=== PATIENT | female | born 1945 | race Hispanic/Latino ===

== ENCOUNTER 2017-04-07 13:44 | Outpatient (CLI) | payer MEDICARE ==
--- NOTE | 2017-04-07 14:52 | BD ---
BONE DENSITOMETRY USING DEXA: Date: 04/07/17 HISTORY: Postmenopausal screening for osteoporosis. FINDINGS: Lumbar Spine: BMD (g/cm2) L1 1.094 T-Score: 0.9 Z-Score: 3.0 L2 0.895 T-Score: -1.2 Z-Score: 1.1 L3 1.048 T-Score: -0.3 Z-Score: 2.1 L4 1.052 T-Score: -0.1 Z-Score: 2.4 L1-L4 1.026 T-Score: -0.2 Z-Score: 2.2 Femoral Neck: 0.727 T-Score: -1.1 Z-Score: 0.8 Total Femur: 0.960 T-Score: 0.1 Z-Score: 1.7 The 10 year fracture risk for a major osteoporotic fracture is 7.2% and for a hip fracture is 1.1%. IMPRESSION: Osteopenia. POS: [facility]
== END 2017-04-07 13:45 | disposition home or self-care (01) ==
LOC: MAMMO 13:44
PROVIDERS: ATTEND Family Medicine
DX: Z13.820 Encounter for screening for osteoporosis (principal); N95.9 Unspecified menopausal and perimenopausal disorder; M85.80 Other specified disorders of bone density and structure, unspecified site
CPT/HCPCS: 77080

== ENCOUNTER 2017-06-28 10:51 | Emergency (ER) | payer MEDICARE ==
[2017-06-28] MEDS ORDERED: Fentanyl 100 MCG/2 ML VIAL ONE (11:39)
--- NOTE | 2017-06-28 12:02 | RAD ---
RIGHT SHOULDER: Four views. HISTORY: Fall with injury to right shoulder. FINDINGS: No evidence of fracture or dislocation. IMPRESSION: No evidence of acute fracture. Exam is somewhat limited due to the portable projection. POS: [facility]
--- NOTE | 2017-06-28 12:07 | CT ---
CT BRAIN WITHOUT CONTRAST: TECHNIQUE: Multiple axial tomograms were obtained through the brain without IV enhancement. HISTORY: Fall with [id number] to head. FINDINGS: The ventricles have normal size and position. There are mild chronic ischemic changes seen. No evid ence of acute hemorrhage. No evidence of mass or edema. Sinuses and mastoids are clear. IMPRESSION: No evidence of acute abnormality. POS: [facility]
--- NOTE | 2017-06-28 12:09 | CT ---
CT OF THE CERVICAL SPINE WITHOUT CONTRAST: INDICATION: Fall landing on right shoulder with right shoulder pain. FINDINGS: No acute fracture or subluxation is seen involving the cervical spine. There is mild multilevel spon dylosis of the cervical spine. Osseous central canal is preserved. There is a comminuted fracture i nvolving the medial shaft of the right clavicle with extension into the right clavicular head. The l ateral fracture fragment is displaced anteriorly approximately shaft width. There is prominent s urrounding hematoma near the fracture site as well as involving the right pectoralis muscle. There a re scattered vascular calcifications. IMPRESSION: 1. No acute fracture or subluxation of the cervical spine. 2. Comminuted moderately displaced fracture involving the right medial clavicular shaft and right cl avicular head with surrounding hematoma. POS: [facility]
--- NOTE | 2017-06-28 12:58 | CT ---
CT CHEST: TECHNIQUE: Multiple axial tomograms obtained through the chest without IV contrast. HISTORY: Fall with injury to right shoulder and right chest. FINDINGS: The lungs are well aerated and are clear. There is no evidence of pneumothorax, effusion, or infiltr ate. Mediastinum is unremarkable. Review of the bony thorax reveals a comminuted fracture at the right sternoclavicular junction involv ing the proximal right clavicle. There is displacement of the major fragment. There is surrounding soft tissue edema at this location. No evidence of rib fracture. Sternum appears intact. IMPRESSION: A comminuted displaced fracture of the proximal right clavicle at this sternoclavicular junction. As sociated soft tissue swelling at this location. POS: [facility]
--- NOTE | 2017-06-28 13:35 | RAD ---
RIGHT FOOT: Three views. HISTORY: Fall with injury to the right foot. FINDINGS: There is an oblique fracture involving the mid to distal shaft of the 5th metatarsal without evidence of significant displacement. Enthesophyte from the plantar calcaneus. No other fracture identified . IMPRESSION: Fracture 5th metatarsal. POS: [facility]
== END 2017-06-28 13:14 | disposition home or self-care (01) ==
LOC: ERS 10:51
DX: S42.011A Anterior displaced fracture of sternal end of right clavicle, initial encounter for closed fracture (principal); S92.351A Displaced fracture of fifth metatarsal bone, right foot, initial encounter for closed fracture; E11.9 Type 2 diabetes mellitus without complications; E78.5 Hyperlipidemia, unspecified; I10 Essential (primary) hypertension; F41.9 Anxiety disorder, unspecified; W19.XXXA Unspecified fall, initial encounter; Y93.02 Activity, running
CPT/HCPCS: 70450; 71250; 72125; 96372; J3010

== ENCOUNTER 2017-11-28 15:36 | Outpatient (CLI) | payer MEDICARE | END 2017-11-28 15:37 | disposition home or self-care (01) | LOC: BICMRI 15:36 | PROVIDERS: ATTEND Family Medicine | DX: M47.26 Other spondylosis with radiculopathy, lumbar region (principal); M99.83 Other biomechanical lesions of lumbar region; N28.1 Cyst of kidney, acquired | CPT/HCPCS: 72148 ==

== ENCOUNTER 2017-11-28 16:18 | Outpatient (CLI) | payer MEDICARE | END 2017-11-28 16:19 | disposition home or self-care (01) | LOC: BICRAD 16:18 | PROVIDERS: ATTEND Nurse Practitioner Family | DX: M47.26 Other spondylosis with radiculopathy, lumbar region (principal); M51.16 Intervertebral disc disorders with radiculopathy, lumbar region; M51.17 Intervertebral disc disorders with radiculopathy, lumbosacral region | CPT/HCPCS: 72100 ==

== ENCOUNTER 2018-01-21 12:43 | Outpatient (CLI) | payer MEDICARE ==
--- NOTE | 2018-01-21 15:16 | ULT ---
BILATERAL RENAL ULTRASOUND: Date: 01/21/18 HISTORY: Renal cysts. FINDINGS: Real-time imaging of the right and left kidneys performed. The right kidney measures 10.5 cm and the left kidney measures 10.9 cm in size. There appears to be cortical thinning bilaterally. Small subcen timeter hypoechoic areas involving the upper poles of both kidneys are probably small cysts. It is di fficult to definitely characterize as they do not fully fulfill all ultrasound criteria. Given the mu ltiplicity, they are most likely small cysts. IMPRESSION: Tiny hypoechoic areas within the upper poles of both kidneys, most likely small, subcentimeter, cysts . POS: [facility]
== END 2018-01-21 12:44 | disposition home or self-care (01) ==
LOC: ULT 12:43
PROVIDERS: ATTEND Family Medicine
DX: N28.1 Cyst of kidney, acquired (principal)
CPT/HCPCS: 76770

== ENCOUNTER 2018-05-04 14:49 | Outpatient (CLI) | payer MEDICARE ==
--- NOTE | 2018-05-04 17:37 | ULT ---
THYROID SONOGRAM: Date: 05/04/18 HISTORY: Thyroid lump. FINDINGS: Right thyroid lobe is 5.0 cm length with multiple small solid and cystic nodules measuring up to 1.0 cm greatest diameter at the lateral margin of the mid polar level. Isthmus is 0.3 cm. Left thyroid lobe is 3.9 cm length with multiple small solid and cystic nodules. Dystrophic calcifica tion at the inferior pole is noted. IMPRESSION: Multiple small, nonspecific thyroid nodules. No dominant aggressive lesion is apparent. POS: [facility]
== END 2018-05-04 14:50 | disposition home or self-care (01) ==
LOC: BICULT 14:49
PROVIDERS: ATTEND Family Medicine
DX: R94.6 Abnormal results of thyroid function studies (principal); E04.2 Nontoxic multinodular goiter
CPT/HCPCS: 76536

== ENCOUNTER 2018-05-22 09:53 | Outpatient (CLI) | payer MEDICARE | END 2018-05-22 09:54 | disposition home or self-care (01) | LOC: BICMAMMO 09:53 | PROVIDERS: ATTEND Family Medicine | DX: Z12.31 Encounter for screening mammogram for malignant neoplasm of breast (principal); R92.1 Mammographic calcification found on diagnostic imaging of breast; Z98.890 Other specified postprocedural states | CPT/HCPCS: 77063; 77067 ==

== ENCOUNTER 2019-05-24 12:24 | Outpatient (CLI) | payer MEDICARE ==
--- NOTE | 2019-05-24 13:59 | MMO ---
Bilateral MAMMO Bilat Screen [facility]. CLINICAL HISTORY: Patient is 74 years old and is seen for screening. The patient has no family history of breast cancer. The patient has no personal history of cancer. The patient has a history of left Excisional Biopsy in August, - benign. VIEWS: The views performed were: bilateral craniocaudal with tomosynthesis and bilateral mediolateral oblique with tomosynthesis. FILMS COMPARED: The present examination has been compared to prior imaging studies performed at [facility] on 05/18/2015, 05/20/2016, 05/21/2017 and 05/22/2018. This study has been interpreted with the assistance of computer-aided detection. MAMMOGRAM FINDINGS: There are scattered fibroglandular densities. Finding 1: There are stable benign appearing calcifications seen in both breasts. Nodularity is stable. Finding 2: There are stable post operative changes seen in the left breast. There are no suspicious masses, suspicious calcifications, or new areas of architectural distortion. IMPRESSION: THERE IS NO MAMMOGRAPHIC EVIDENCE OF MALIGNANCY. A ROUTINE FOLLOW-UP MAMMOGRAM IN 1 YEAR IS RECOMMENDED. THE RESULTS OF THIS EXAM WERE SENT TO THE PATIENT. ACR BI-RADS Category 2 - Benign finding MAMMOGRAPHY NOTE: 1. A negative mammogram report should not delay a biopsy if a dominant of clinically suspicious mass is present. 2. Approximately 10% to 15% of breast cancers are not detected by mammography. 3. Adenosis and dense breasts may obscure an underlying neoplasm. Reported by: JENNIFER CARBONE MD Electonically Signed: [id number]
== END 2019-05-24 12:25 | disposition home or self-care (01) ==
LOC: BICMAMMO 12:24
PROVIDERS: ATTEND Family Medicine
DX: Z12.31 Encounter for screening mammogram for malignant neoplasm of breast (principal); Z91.89 Other specified personal risk factors, not elsewhere classified
CPT/HCPCS: 77063; 77067

== ENCOUNTER 2020-01-31 13:24 | Outpatient (CLI) | payer MEDICARE ==
--- NOTE | 2020-01-31 14:01 | ULT ---
ULTRASOUND RETROPERITONEUM COMPLETE: (RENAL) DATE: 01/31/2020 HISTORY: 74-year-old female with chronic kidney disease stage II: ICD-10: N 18.2 FINDINGS: The right kidney measures 10.5 x 4.5 x 4.5 cm. The left kidney measures 11 x 5 x 5.5 cm. Both kidneys have normal parenchymal echogenicity. There is no hydronephrosis. There is a 1 cm cyst in the left renal upper-mid pole. No moderate sized or large solid renal lesion is identified. The urinary bladder is almost empty (5 mL) and therefore cannot be evaluated. IMPRESSION: 1) No hydronephrosis. 2) small left renal cyst.
== END 2020-01-31 13:25 | disposition home or self-care (01) ==
LOC: BICULT 13:24
PROVIDERS: ATTEND Internal Medicine Nephrology
DX: N18.2 Chronic kidney disease, stage 2 (mild) (principal); N28.1 Cyst of kidney, acquired
CPT/HCPCS: 76770

== ENCOUNTER 2020-05-26 09:41 | Outpatient (CLI) | payer MEDICARE ==
--- NOTE | 2020-05-26 11:27 | MMO ---
Bilateral MAMMO Bilat Screen [facility]. CLINICAL HISTORY: Patient is 75 years old and is seen for screening. The patient has no family history of breast cancer. The patient has no personal history of cancer. The patient has a history of left Excisional Biopsy in August, - benign. VIEWS: The views performed were: bilateral craniocaudal with tomosynthesis and bilateral mediolateral oblique with tomosynthesis. FILMS COMPARED: The present examination has been compared to prior imaging studies performed at [facility] on 05/20/2016, 05/21/2017, 05/22/2018 and 05/24/2019. This study has been interpreted with the assistance of computer-aided detection. MAMMOGRAM FINDINGS: There are scattered fibroglandular densities. Finding 1: There are stable benign appearing calcifications seen in both breasts. Finding 2: There are stable benign appearing densities seen in both breasts. Finding 3: There is a stable intramammary lymph node seen in the left breast. There are no suspicious masses, suspicious calcifications, or new areas of architectural distortion. IMPRESSION: THERE IS NO MAMMOGRAPHIC EVIDENCE OF MALIGNANCY. A ROUTINE FOLLOW-UP MAMMOGRAM IN 1 YEAR IS RECOMMENDED. THE RESULTS OF THIS EXAM WERE SENT TO THE PATIENT. ACR BI-RADS Category 2 - Benign finding MAMMOGRAPHY NOTE: 1. A negative mammogram report should not delay a biopsy if a dominant of clinically suspicious mass is present. 2. Approximately 10% to 15% of breast cancers are not detected by mammography. 3. Adenosis and dense breasts may obscure an underlying neoplasm. Reported by: DIRK YANG MD Electonically Signed: [id number]
== END 2020-05-26 09:42 | disposition home or self-care (01) ==
LOC: BICMAMMO 09:41
PROVIDERS: ATTEND Family Medicine
DX: Z12.31 Encounter for screening mammogram for malignant neoplasm of breast (principal); Z91.89 Other specified personal risk factors, not elsewhere classified
CPT/HCPCS: 77063; 77067

== ENCOUNTER 2020-10-18 08:04 | Day surgery (SDC) | payer MEDICARE ==
[2020-10-12 14:55] VITALS: BMI 25.4
[2020-10-18 09:00] LABS: #Eosinphils 0.1 thou/uL (0.0-0.7); #Lymphocytes 1.3 thou/uL (1.20-3.40); #Monocytes 0.4 thou/uL (0.11-0.59); #Neutrophils 3.3 thou/uL (1.40-6.50); %Basophils 0.5 % (0.0-1.0); %Eosinophils 1.3 % (0.0-10.0); %Lymphocytes 25.8 % (21.0-51.0); %Monocytes 7.1 % (0.0-10.0); %Neutrophils 65.3 % (42.0-75.0); Hemoglobin 11.5 g/dL (12.0-16.0); Mean Corpuscular HGB CONC 34.5 g/dL (32.0-36.0); Mean Corpuscular Hemoglobin 32.8 pg (27.0-31.0); Mean Platelet Volume 8.8 fL (7.4-10.4); Platelet Count 167 thou/uL (130-400); RBC Distribution Width 12.2 % (11.5-14.5)
[2020-10-18 09:04] LABS: PTT 35.4 sec (22.9-36.1); Prothrombin Time 12.9 sec (12.0-14.7)
[2020-10-18 11:12] VITALS: BP 163/55; TEMP 97.7
== END 2020-10-18 12:35 | disposition home or self-care (01) ==
LOC: CT 08:04 → EDBD 10:00 → CT 12:35
PROVIDERS: ATTEND Internal Medicine Nephrology
PROC: 0TB13ZX Excision of Left Kidney, Percutaneous Approach, Diagnostic (ICD-10-PCS; principal; 2020-10-18)
DX: I12.9 Hypertensive chronic kidney disease with stage 1 through stage 4 chronic kidney disease, or unspecified chronic kidney disease (principal); E11.21 Type 2 diabetes mellitus with diabetic nephropathy; E11.22 Type 2 diabetes mellitus with diabetic chronic kidney disease; N18.2 Chronic kidney disease, stage 2 (mild); N17.8 Other acute kidney failure; D63.1 Anemia in chronic kidney disease; E55.9 Vitamin D deficiency, unspecified; M81.0 Age-related osteoporosis without current pathological fracture; E78.5 Hyperlipidemia, unspecified; N28.1 Cyst of kidney, acquired; E66.3 Overweight; Z68.25 Body mass index [BMI] 25.0-25.9, adult; Z79.82 Long term (current) use of aspirin; Z79.84 Long term (current) use of oral hypoglycemic drugs; Z79.899 Other long term (current) drug therapy
CPT/HCPCS: 50200; 77002; 85025; 85610; 85730; 88329

== ENCOUNTER 2021-05-28 11:20 | Outpatient (CLI) | payer MEDICARE | END 2021-05-28 11:21 | disposition home or self-care (01) | LOC: BICMAMMO 11:20 → EDBD 11:20 → BICMAMMO 11:21 | PROVIDERS: ATTEND Family Medicine | DX: Z12.31 Encounter for screening mammogram for malignant neoplasm of breast (principal); Z91.89 Other specified personal risk factors, not elsewhere classified | CPT/HCPCS: 77063; 77067 ==

== ENCOUNTER 2022-06-05 14:06 | Outpatient (CLI) | payer MEDICARE, OTHER | END 2022-06-05 14:07 | disposition home or self-care (01) | LOC: BICMAMMO 14:06 | PROVIDERS: ATTEND Family Medicine | DX: Z12.31 Encounter for screening mammogram for malignant neoplasm of breast (principal); Z91.89 Other specified personal risk factors, not elsewhere classified | CPT/HCPCS: 77063; 77067 ==

== ENCOUNTER 2023-06-02 15:17 | Inpatient (IN) | payer OTHER ==
[2023-06-02] MEDS ORDERED: Labetalol HCl 100 MG/20 ML VIAL ONE (16:39)
[2023-06-02 16:57] LABS: #Eosinphils 0.1 thou/uL (0.0-0.7); #Monocytes 0.4 thou/uL (0.11-0.59); #Neutrophils 4.1 thou/uL (1.40-6.50); %Basophils 0.6 % (0.0-1.0); %Eosinophils 1.6 % (0.0-10.0); %Lymphocytes 28.1 % (21.0-51.0); %Monocytes 5.5 % (0.0-10.0); %Neutrophils 63.9 % (42.0-75.0); Hematocrit 32.1 % (36.0-47.0); Mean Corpuscular HGB CONC 34.3 g/dL (32.0-36.0); Mean Corpuscular Hemoglobin 32.4 pg (27.0-31.0); Mean Corpuscular Volume 94.4 fl (78.0-98.0); Platelet Count 213 10x3/uL (130-400); White Blood Cell (WBC) Count 6.4 10x3/uL (4.8-10.8)
[2023-06-02 17:16] LABS: Troponin I 0.049 ng/mL (< 0.028)
[2023-06-02 17:18] LABS: ALT (SGPT) 17 U/L (8-55); AST (SGOT) 30 U/L (5-34); Albumin 3.7 g/dL (3.4-4.8); Alkaline Phosphatase 95 U/L (40-110); Anion Gap 15 mmol/L (10-20); BUN (Urea Nitrogen) 21 mg/dL (9.8-20.1); Bilirubin, Total 0.3 mg/dL (0.2-1.2); Calc. Creatinine Clearance 0 mL/min (70-130); Calcium 9.3 mg/dL (7.8-10.44); Carbon Dioxide 22 mmol/L (23-31); Chloride 106 mmol/L (98-107); Estimated GFR 49; Globulin 4.2 g/dL (2.4-3.5); Glucose 84 mg/dL (83-110); Potassium 4.3 mmol/L (3.5-5.1); Protein, Total 7.9 g/dL (5.8-8.1); Sodium 139 mmol/L (136-145)
[2023-06-02 18:28] LABS: Bacteria/HPF 3+ HPF (None Seen); Bilirubin Negative (Negative); Blood, Urine Trace (Negative); CAUTI Indications for Culture Pelvic or flank pain; Clarity Turbid (Clear); Glucose, Urine (Dipstick) Normal (Negative); Ketone, Urine Negative (Negative); Leukocyte Negative Leu/uL (Negative); Nitrite Negative (Negative); Protein, Urine (Dipstick) 200 mg/dL (Neg-Trace); RBC/HPF 0-3 HPF (0-3); Specific Gravity, Urine 1.008 (1.002-1.036); Squamous Epithelial 0-3 HPF (0-3); Urobilinogen Normal mg/dL (Less than 2); WBC/HPF 0-3 HPF (0-3)
[2023-06-02 18:29] LABS: Urine Culture Reflex No No
[2023-06-02] MEDS ORDERED: hydrALAZINE 20 MG/ML VIAL SLOW IVP PRN (18:41)
[2023-06-02] MEDS ORDERED: Dextrose 5% in Water 1,000 ML IV PRN (18:44)
[2023-06-02] MEDS ORDERED: Dextrose 50% Abboject 50 ML SYRINGE SLOW IVP PRN (18:44)
[2023-06-02] MEDS ORDERED: HumaLOG 300 UNITS/3 ML VIAL SC PRN ×2 (18:44)
[2023-06-02] MEDS ORDERED: Glucagon 1 MG/ML KIT IM PRN (18:44)
[2023-06-02] MEDS ORDERED: Ondansetron ODT 4 MG TAB PO PRN (18:53)
[2023-06-02] MEDS ORDERED: Ondansetron PF 4 MG/2 ML Vial IVP PRN (18:53)
[2023-06-02] MEDS ORDERED: Acetaminophen 325 MG TAB PO PRN (18:53)
[2023-06-02] MEDS ORDERED: hydrALAZINE 20 MG/ML VIAL ONE (19:05)
[2023-06-02 20:06] LABS: Troponin I 0.031 ng/mL (< 0.028)
[2023-06-02 22:02] VITALS: BMI 25.3
[2023-06-02] MEDS: hydrALAZINE 25 MG TAB PO SCH (22:11)
[2023-06-02] MEDS: Atorvastatin Calcium 10 MG TAB PO SCH (22:11)
[2023-06-02] MEDS: Donepezil HCl 5 MG TAB PO SCH (22:11)
[2023-06-02 23:50] LABS: Troponin I 0.048 ng/mL (< 0.028)
[2023-06-03 04:37] LABS: #Eosinphils 0.1 thou/uL (0.0-0.7); #Monocytes 0.3 thou/uL (0.11-0.59); #Neutrophils 2.8 thou/uL (1.40-6.50); %Basophils 0.5 % (0.0-1.0); %Eosinophils 1.6 % (0.0-10.0); %Lymphocytes 24.2 % (21.0-51.0); %Monocytes 7.3 % (0.0-10.0); %Neutrophils 66.2 % (42.0-75.0); Hematocrit 30.1 % (36.0-47.0); Hemoglobin 9.9 g/dL (12.0-16.0); Mean Corpuscular HGB CONC 32.9 g/dL (32.0-36.0); Mean Corpuscular Hemoglobin 32.1 pg (27.0-31.0); Mean Platelet Volume 10.5 fL (7.4-10.4); Platelet Count 161 10x3/uL (130-400); RBC Distribution Width 13.3 % (11.5-14.5); Red Blood Cell (RBC) Count 3.08 mill/uL (4.20-5.40); White Blood Cell (WBC) Count 4.3 10x3/uL (4.8-10.8)
[2023-06-03 05:07] LABS: Anion Gap 13 mmol/L (10-20); BUN (Urea Nitrogen) 17 mg/dL (9.8-20.1); Calc. Creatinine Clearance 49 mL/min (70-130); Calcium 8.4 mg/dL (7.8-10.44); Carbon Dioxide 21 mmol/L (23-31); Chloride 109 mmol/L (98-107); Estimated GFR 62; Glucose 112 mg/dL (83-110); Potassium 4.1 mmol/L (3.5-5.1); Sodium 139 mmol/L (136-145)
[2023-06-03 05:42] LABS: Mean Corpuscular Volume 97.7 fl (78.0-98.0)
[2023-06-03] MEDS ORDERED: Lisinopril 10 MG TAB PO SCH (09:00)
[2023-06-03] MEDS: Amlodipine 10 MG TAB PO SCH (10:16)
[2023-06-03] MEDS: hydrALAZINE 25 MG TAB PO SCH ×3 (10:18→21:12)
[2023-06-03] MEDS: Lisinopril 10 MG TAB PO SCH (21:12)
[2023-06-03] MEDS: Donepezil HCl 5 MG TAB PO SCH (21:12)
[2023-06-03] MEDS: Atorvastatin Calcium 10 MG TAB PO SCH (21:12)
[2023-06-04 04:59] LABS: #Eosinphils 0.1 thou/uL (0.0-0.7); #Monocytes 0.4 thou/uL (0.11-0.59); #Neutrophils 2.8 thou/uL (1.40-6.50); %Basophils 0.6 % (0.0-1.0); %Eosinophils 1.9 % (0.0-10.0); %Lymphocytes 29.5 % (21.0-51.0); %Monocytes 7.6 % (0.0-10.0); %Neutrophils 60.2 % (42.0-75.0); Hematocrit 29.3 % (36.0-47.0); Hemoglobin 9.9 g/dL (12.0-16.0); Mean Corpuscular HGB CONC 33.8 g/dL (32.0-36.0); Mean Corpuscular Hemoglobin 32.5 pg (27.0-31.0); Mean Corpuscular Volume 96.1 fl (78.0-98.0); Mean Platelet Volume 11.4 fL (7.4-10.4); Platelet Count 203 10x3/uL (130-400); RBC Distribution Width 13.2 % (11.5-14.5); Red Blood Cell (RBC) Count 3.05 mill/uL (4.20-5.40); White Blood Cell (WBC) Count 4.7 10x3/uL (4.8-10.8)
[2023-06-04 05:32] LABS: Anion Gap 13 mmol/L (10-20); BUN (Urea Nitrogen) 20 mg/dL (9.8-20.1); Calc. Creatinine Clearance 43 mL/min (70-130); Calcium 8.3 mg/dL (7.8-10.44); Carbon Dioxide 23 mmol/L (23-31); Chloride 108 mmol/L (98-107); Estimated GFR 52; Glucose 106 mg/dL (83-110); Potassium 4.1 mmol/L (3.5-5.1); Sodium 140 mmol/L (136-145)
[2023-06-04] MEDS: Amlodipine 10 MG TAB PO SCH (08:25)
[2023-06-04] MEDS: Lisinopril 10 MG TAB PO SCH (08:25)
[2023-06-04] MEDS: hydrALAZINE 25 MG TAB PO SCH ×2 (08:26→14:28)
[2023-06-04 15:56] VITALS: BP 134/65
[2023-06-04 15:59] VITALS: TEMP 97.6
== END 2023-06-04 16:41 | disposition home or self-care (01) | DRG 305 ==
LOC: ERS 15:17 → 2NO 18:17 → OBSVTOIN 06-04 10:26
PROVIDERS: ADMIT Physician Assistant; ATTEND Family Medicine
DX: I16.1 Hypertensive emergency (principal); N17.9 Acute kidney failure, unspecified; I16.0 Hypertensive urgency; I10 Essential (primary) hypertension; E78.5 Hyperlipidemia, unspecified; G30.9 Alzheimer's disease, unspecified; E11.40 Type 2 diabetes mellitus with diabetic neuropathy, unspecified; F02.80 Dementia in other diseases classified elsewhere, unspecified severity, without behavioral disturbance, psychotic disturbance, mood disturbance, and anxiety; Z79.899 Other long term (current) drug therapy; Z79.84 Long term (current) use of oral hypoglycemic drugs; Z90.49 Acquired absence of other specified parts of digestive tract; Z98.890 Other specified postprocedural states; Z90.710 Acquired absence of both cervix and uterus; Z82.49 Family history of ischemic heart disease and other diseases of the circulatory system
CPT/HCPCS: 36415; 36416; 70450; 71045; 80048; 80053; 81001; 83735; 83880; 84484; 85025; 93005; 93306; J0360

== ENCOUNTER 2023-06-19 14:18 | Outpatient (CLI) | payer OTHER | END 2023-06-19 14:19 | disposition home or self-care (01) | LOC: BICMAMMO 14:18 | PROVIDERS: ATTEND Family Medicine | DX: Z12.31 Encounter for screening mammogram for malignant neoplasm of breast (principal); R09.89 Other specified symptoms and signs involving the circulatory and respiratory systems; I65.23 Occlusion and stenosis of bilateral carotid arteries; Z91.89 Other specified personal risk factors, not elsewhere classified | CPT/HCPCS: 77063; 77067; 93880 ==

== ENCOUNTER 2023-08-08 10:52 | Emergency (ER) | payer OTHER ==
[2023-08-08] MEDS ORDERED: Ketorolac Tromethamine 30 MG (1 mL) VIAL ONE (12:11)
[2023-08-08] MEDS ORDERED: HYDROcodone/Acetaminophen 5/325 mg Tablet ONE (15:37)
== END 2023-08-08 16:43 | disposition home or self-care (01) ==
LOC: ERS 10:52
DX: S22.079A Unspecified fracture of T9-T10 vertebra, initial encounter for closed fracture (principal); E11.9 Type 2 diabetes mellitus without complications; I10 Essential (primary) hypertension; W19.XXXA Unspecified fall, initial encounter
CPT/HCPCS: 70450; 72125; 72128; 72131; 96372; J1885

== ENCOUNTER 2023-09-25 10:32 | Outpatient (CLI) | payer OTHER | END 2023-09-25 10:33 | disposition home or self-care (01) | LOC: BICMRI 10:32 | PROVIDERS: ATTEND Family Medicine | DX: S22.078G Other fracture of T9-T10 vertebra, subsequent encounter for fracture with delayed healing (principal); M75.122 Complete rotator cuff tear or rupture of left shoulder, not specified as traumatic; M48.8X4 Other specified spondylopathies, thoracic region | CPT/HCPCS: 72146 ==

== ENCOUNTER 2023-12-04 15:24 | Inpatient (IN) | payer OTHER ==
[~2023-12-04 15:24] MED LIST: Iopamidol-370 76% 500 ML MDV (1 ML CHARGE) ONE
[2023-12-04 16:03] LABS: #Basophils 0.03 10x3/uL (0.0-0.2); %Basophils 0.5 % (0.0-1.0); %Eosinophils 1.7 % (0.0-10.0); %Lymphocytes 15.7 % (21.0-51.0); %Monocytes 6.8 % (0.0-10.0); Hematocrit 24.4 % (36.0-47.0); Mean Corpuscular HGB CONC 32.8 g/dL (32.0-36.0); Mean Corpuscular Hemoglobin 31.9 pg (27.0-31.0); Mean Corpuscular Volume 97.2 fL (78.0-98.0); Mean Platelet Volume 9.8 fL (7.4-10.4); Platelet Count 217 10x3/uL (130-400); Red Blood Cell (RBC) Count 2.51 mill/uL (4.20-5.40)
[2023-12-04 16:17] LABS: ALT (SGPT) 13 U/L (8-55); AST (SGOT) 20 U/L (5-34); Albumin 2.7 g/dL (3.4-4.8); Alkaline Phosphatase 117 U/L (40-110); Anion Gap 11 mmol/L (10-20); BUN (Urea Nitrogen) 19 mg/dL (9.8-20.1); Bilirubin, Total 0.4 mg/dL (0.2-1.2); Calc. Creatinine Clearance 0 mL/min (70-130); Calcium 8.7 mg/dL (7.8-10.44); Carbon Dioxide 21 mmol/L (23-31); Chloride 111 mmol/L (98-107); Estimated GFR 50; Glucose 126 mg/dL (83-110); Potassium 3.7 mmol/L (3.5-5.1); Protein, Total 6.7 g/dL (5.8-8.1); Sodium 139 mmol/L (136-145)
[2023-12-04] MEDS ORDERED: Furosemide 40 MG (4 mL) VIAL ONE (16:18)
[2023-12-04 16:23] LABS: Troponin I 0.046 ng/mL (< 0.028)
[2023-12-04 16:37] LABS: Bilirubin Negative (Negative); Blood, Urine Negative (Negative); CAUTI Indications for Culture Pelvic or flank pain; Clarity Clear (Clear); Glucose, Urine (Dipstick) 70 mg/dL (Negative); Ketone, Urine Negative (Negative); Leukocyte Negative Leu/uL (Negative); Nitrite Negative (Negative); Protein, Urine (Dipstick) 600 mg/dL (Neg-Trace); RBC/HPF 0-3 HPF (0-3); Squamous Epithelial 0-3 HPF (0-3); Urobilinogen Normal mg/dL (Less than 2); WBC/HPF 0-3 HPF (0-3); pH, Urine 6.5 (5.0-9.0)
[2023-12-04 16:38] LABS: Bacteria/HPF Rare-Few HPF (None Seen)
[2023-12-04 16:39] LABS: Urine Culture Reflex No No
[2023-12-04] MEDS ORDERED: Nitroglycerin 0.4 MG TAB 1 EACH ONE (19:16)
[2023-12-04] MEDS ORDERED: Aspirin Chewable 81 MG TAB ONE (19:17)
[2023-12-04 20:24] LABS: Troponin I 0.044 ng/mL (< 0.028)
[2023-12-04] MEDS ORDERED: Ondansetron PF 4 MG/2 ML Vial IVP PRN (20:26)
[2023-12-04] MEDS ORDERED: Glucagon 1 MG/ML KIT IM PRN (20:31)
[2023-12-04] MEDS ORDERED: Dextrose 5% in Water 1,000 ML IV PRN (20:31)
[2023-12-04] MEDS ORDERED: Dextrose 50% Abboject 50 ML SYRINGE SLOW IVP PRN (20:31)
[2023-12-04 21:46] VITALS: BMI 23.8
[2023-12-05 04:15] LABS: #Basophils Less than 0.03 10x3/uL (0.0-0.2); %Basophils 0.4 % (0.0-1.0); %Eosinophils 3.3 % (0.0-10.0); %Lymphocytes 19.4 % (21.0-51.0); %Monocytes 8.8 % (0.0-10.0); %Neutrophils 67.9 % (42.0-75.0); Hematocrit 21.4 % (36.0-47.0); Hemoglobin 7.1 g/dL (12.0-16.0); Mean Corpuscular HGB CONC 33.2 g/dL (32.0-36.0); Mean Corpuscular Hemoglobin 31.1 pg (27.0-31.0); Mean Corpuscular Volume 93.9 fL (78.0-98.0); Platelet Count 189 10x3/uL (130-400); RBC Distribution Width 13.8 % (11.5-14.5); Red Blood Cell (RBC) Count 2.28 mill/uL (4.20-5.40)
[2023-12-05 04:34] LABS: Iron 23 ug/dL (50-170); Iron Binding Capacity, Total 213 mcg/dL (265-497)
[2023-12-05 04:36] LABS: Anion Gap 11 mmol/L (10-20); BUN (Urea Nitrogen) 19 mg/dL (9.8-20.1); Calc. Creatinine Clearance 44 mL/min (70-130); Calcium 8.4 mg/dL (7.8-10.44); Carbon Dioxide 24 mmol/L (23-31); Chloride 109 mmol/L (98-107); Estimated GFR 58; Glucose 87 mg/dL (83-110); Iron 23 ug/dL (50-170); Iron Binding Capacity, Total 214 mcg/dL (265-497); Potassium 3.6 mmol/L (3.5-5.1); Sodium 140 mmol/L (136-145)
[2023-12-05] MEDS ORDERED: Furosemide 40 MG (4 mL) VIAL SLOW IVP SCH (06:00)
[2023-12-05] MEDS: Furosemide 40 MG (4 mL) VIAL SLOW IVP SCH (06:11)
[2023-12-05] MEDS ORDERED: Ferrous Sulfate 325 MG TAB PO SCH (08:00)
[2023-12-05 08:49] VITALS: BMI 23.8
[2023-12-05] MEDS ORDERED: Enoxaparin 40 MG (0.4 mL) SYRINGE SC SCH (09:00)
[2023-12-05] MEDS ORDERED: Enoxaparin 30 MG (0.3 mL) SYRINGE SC SCH ×2 (09:00)
[2023-12-05] MEDS: hydrALAZINE 25 MG TAB PO SCH (09:59)
[2023-12-05] MEDS: Cholecalciferol 1,000 UNITS (25 MCG) TAB PO SCH (09:59)
[2023-12-05] MEDS: Calcium Carbonate 600 MG TAB PO SCH (09:59)
[2023-12-05] MEDS: Ferrous Sulfate 325 MG TAB PO SCH (09:59)
[2023-12-05] MEDS: Amlodipine 10 MG TAB PO SCH (09:59)
[2023-12-05] MEDS: Ascorbic Acid 500 mg Chewable Tablet PO SCH (09:59)
[2023-12-05] MEDS: Lisinopril 20 MG TAB PO SCH (09:59)
[2023-12-05] MEDS: Multivitamin W/ Minerals 1 TAB PO SCH (10:00)
[2023-12-05] MEDS: Sertraline 100 MG TAB PO SCH (10:00)
[2023-12-05] MEDS: Pantoprazole DR 40 MG TAB PO SCH (10:00)
[2023-12-05] MEDS: Sodium Ferric Gluconate 250 MG in Sodium Chloride 0.9% 250 ML 250 ML IVPB SCH (10:11)
[2023-12-05 17:24] LABS: Hemoglobin 8.2 g/dL (12.0-16.0)
[2023-12-05] MEDS: Donepezil HCl 10 MG TAB PO SCH (20:42)
[2023-12-05] MEDS: Atorvastatin Calcium 10 MG TAB PO SCH (20:42)
[2023-12-06 04:53] LABS: #Basophils Less than 0.03 10x3/uL (0.0-0.2); %Basophils 0.4 % (0.0-1.0); %Eosinophils 2.5 % (0.0-10.0); %Lymphocytes 21.7 % (21.0-51.0); %Monocytes 7.5 % (0.0-10.0); %Neutrophils 67.7 % (42.0-75.0); Hematocrit 22.5 % (36.0-47.0); Hemoglobin 7.5 g/dL (12.0-16.0); Mean Corpuscular HGB CONC 33.3 g/dL (32.0-36.0); Mean Corpuscular Hemoglobin 31.8 pg (27.0-31.0); Mean Corpuscular Volume 95.3 fL (78.0-98.0); Mean Platelet Volume 9.5 fL (7.4-10.4); Platelet Count 191 10x3/uL (130-400); Red Blood Cell (RBC) Count 2.36 mill/uL (4.20-5.40)
[2023-12-06 05:46] LABS: Anion Gap 13 mmol/L (10-20); BUN (Urea Nitrogen) 24 mg/dL (9.8-20.1); Calc. Creatinine Clearance 30 mL/min (70-130); Calcium 8.4 mg/dL (7.8-10.44); Carbon Dioxide 26 mmol/L (23-31); Chloride 106 mmol/L (98-107); Estimated GFR 37; Glucose 109 mg/dL (83-110); Potassium 3.5 mmol/L (3.5-5.1); Sodium 141 mmol/L (136-145)
[2023-12-06] MEDS: Ferrous Sulfate 325 MG TAB PO SCH (09:11)
[2023-12-06] MEDS: Carvedilol 3.125 MG TAB PO SCH ×2 (09:16→17:53)
[2023-12-06] MEDS: Gabapentin 300 MG CAP PO SCH (20:25)
[2023-12-07 04:57] LABS: #Basophils Less than 0.03 10x3/uL (0.0-0.2); %Basophils 0.3 % (0.0-1.0); %Eosinophils 1.9 % (0.0-10.0); %Lymphocytes 20.3 % (21.0-51.0); %Monocytes 8.8 % (0.0-10.0); %Neutrophils 68.4 % (42.0-75.0); Hematocrit 21.1 % (36.0-47.0); Mean Corpuscular HGB CONC 33.2 g/dL (32.0-36.0); Mean Corpuscular Hemoglobin 32.1 pg (27.0-31.0); Mean Corpuscular Volume 96.8 fL (78.0-98.0); Mean Platelet Volume 10.1 fL (7.4-10.4); Platelet Count 189 10x3/uL (130-400); RBC Distribution Width 14.1 % (11.5-14.5); Red Blood Cell (RBC) Count 2.18 mill/uL (4.20-5.40)
[2023-12-07 05:09] LABS: Anion Gap 14 mmol/L (10-20); BUN (Urea Nitrogen) 34 mg/dL (9.8-20.1); Calc. Creatinine Clearance 25 mL/min (70-130); Calcium 7.8 mg/dL (7.8-10.44); Carbon Dioxide 25 mmol/L (23-31); Chloride 106 mmol/L (98-107); Estimated GFR 29; Glucose 113 mg/dL (83-110); Potassium 3.4 mmol/L (3.5-5.1); Sodium 142 mmol/L (136-145)
[2023-12-07] MEDS: Sodium Chloride 0.9% 1,000 ML IV SCH ×2 (08:52→12:31)
[2023-12-07] MEDS: HYDROcodone/Acetaminophen 10/325 mg Tablet PO PRN (14:03)
[2023-12-07 17:22] LABS: #Basophils Less than 0.03 10x3/uL (0.0-0.2); %Basophils 0.3 % (0.0-1.0); %Eosinophils 1.4 % (0.0-10.0); %Lymphocytes 10.5 % (21.0-51.0); %Monocytes 7.5 % (0.0-10.0); %Neutrophils 79.9 % (42.0-75.0); Hemoglobin 7.5 g/dL (12.0-16.0); Mean Corpuscular HGB CONC 32.6 g/dL (32.0-36.0); Mean Corpuscular Hemoglobin 31.6 pg (27.0-31.0); Mean Platelet Volume 9.7 fL (7.4-10.4); Platelet Count 199 10x3/uL (130-400); RBC Distribution Width 13.9 % (11.5-14.5); Red Blood Cell (RBC) Count 2.37 mill/uL (4.20-5.40)
[2023-12-07 17:35] LABS: Anion Gap 14 mmol/L (10-20); BUN (Urea Nitrogen) 38 mg/dL (9.8-20.1); Calc. Creatinine Clearance 28 mL/min (70-130); Calcium 8.2 mg/dL (7.8-10.44); Carbon Dioxide 23 mmol/L (23-31); Chloride 107 mmol/L (98-107); Estimated GFR 37; Glucose 144 mg/dL (83-110); Potassium 3.5 mmol/L (3.5-5.1); Sodium 140 mmol/L (136-145)
[2023-12-07] MEDS: HumaLOG 300 UNITS/3 ML VIAL SC PRN (20:55)
[2023-12-08 05:57] LABS: #Basophils Less than 0.03 10x3/uL (0.0-0.2); %Basophils 0.1 % (0.0-1.0); %Lymphocytes 17.6 % (21.0-51.0); %Monocytes 8.5 % (0.0-10.0); %Neutrophils 72.5 % (42.0-75.0); Hematocrit 20.9 % (36.0-47.0); Hemoglobin 6.9 g/dL (12.0-16.0); Mean Corpuscular Hemoglobin 32.2 pg (27.0-31.0); Mean Corpuscular Volume 97.7 fL (78.0-98.0); Mean Platelet Volume 11.6 fL (7.4-10.4); Platelet Count 185 10x3/uL (130-400); RBC Distribution Width 13.8 % (11.5-14.5); Red Blood Cell (RBC) Count 2.14 mill/uL (4.20-5.40)
[2023-12-08 06:18] LABS: Anion Gap 13 mmol/L (10-20); BUN (Urea Nitrogen) 36 mg/dL (9.8-20.1); Calc. Creatinine Clearance 29 mL/min (70-130); Calcium 7.7 mg/dL (7.8-10.44); Carbon Dioxide 22 mmol/L (23-31); Chloride 107 mmol/L (98-107); Estimated GFR 37; Glucose 101 mg/dL (83-110); Potassium 3.2 mmol/L (3.5-5.1); Sodium 139 mmol/L (136-145)
[2023-12-08] MEDS: Acetaminophen 325 MG TAB PO PRN (08:47)
[2023-12-08] MEDS ORDERED: Senokot 8.6 MG TAB PO PRN (10:42)
[2023-12-08] MEDS: Senokot 8.6 MG TAB PO SCH (12:03)
[2023-12-08] MEDS: Sodium Chloride 0.9% 1,000 ML IV SCH (17:01)
[2023-12-08] MEDS: HumaLOG 300 UNITS/3 ML VIAL SC PRN (17:02)
[2023-12-08] MEDS: Heparin 5,000 UNITS/ML VIAL SC SCH (20:53)
[2023-12-09] MEDS: HYDROcodone/Acetaminophen 7.5/325 mg Tablet PO PRN (00:23)
[2023-12-09 04:28] LABS: #Basophils 0.03 10x3/uL (0.0-0.2); %Basophils 0.6 % (0.0-1.0); %Eosinophils 2.5 % (0.0-10.0); %Lymphocytes 23.3 % (21.0-51.0); %Monocytes 9.7 % (0.0-10.0); %Neutrophils 63.1 % (42.0-75.0); Hematocrit 22.2 % (36.0-47.0); Hemoglobin 7.4 g/dL (12.0-16.0); Mean Corpuscular HGB CONC 33.3 g/dL (32.0-36.0); Mean Corpuscular Hemoglobin 31.2 pg (27.0-31.0); Mean Corpuscular Volume 93.7 fL (78.0-98.0); Mean Platelet Volume 10.3 fL (7.4-10.4); Platelet Count 168 10x3/uL (130-400); RBC Distribution Width 14.6 % (11.5-14.5); Red Blood Cell (RBC) Count 2.37 mill/uL (4.20-5.40)
[2023-12-09 05:00] LABS: Anion Gap 13 mmol/L (10-20); BUN (Urea Nitrogen) 43 mg/dL (9.8-20.1); Calc. Creatinine Clearance 28 mL/min (70-130); Calcium 7.9 mg/dL (7.8-10.44); Carbon Dioxide 21 mmol/L (23-31); Chloride 108 mmol/L (98-107); Estimated GFR 36; Glucose 108 mg/dL (83-110); Potassium 3.5 mmol/L (3.5-5.1); Sodium 138 mmol/L (136-145)
[2023-12-09] MEDS ORDERED: Epoetin (ESRD) 10,000 UNITS/ML VIAL SC SCH (11:30)
[2023-12-09] MEDS: EPOETIN ALFA-EPBX (ESRD) 10,000 UNITS/ML VIAL SC SCH (16:17)
[2023-12-10 06:06] LABS: #Basophils 0.03 10x3/uL (0.0-0.2); %Basophils 0.6 % (0.0-1.0); %Eosinophils 2.3 % (0.0-10.0); %Lymphocytes 16.1 % (21.0-51.0); %Monocytes 8.3 % (0.0-10.0); %Neutrophils 72.3 % (42.0-75.0); Hematocrit 23.2 % (36.0-47.0); Hemoglobin 7.7 g/dL (12.0-16.0); Mean Corpuscular HGB CONC 33.2 g/dL (32.0-36.0); Mean Corpuscular Volume 96.3 fL (78.0-98.0); Mean Platelet Volume 10.9 fL (7.4-10.4); Platelet Count 180 10x3/uL (130-400); RBC Distribution Width 14.2 % (11.5-14.5); Red Blood Cell (RBC) Count 2.41 mill/uL (4.20-5.40)
[2023-12-10 06:31] LABS: Anion Gap 13 mmol/L (10-20); BUN (Urea Nitrogen) 34 mg/dL (9.8-20.1); Calc. Creatinine Clearance 43 mL/min (70-130); Calcium 8.1 mg/dL (7.8-10.44); Carbon Dioxide 20 mmol/L (23-31); Chloride 111 mmol/L (98-107); Estimated GFR 53; Glucose 116 mg/dL (83-110); Potassium 3.6 mmol/L (3.5-5.1); Sodium 140 mmol/L (136-145)
[2023-12-11] MEDS: Amlodipine 5 MG TAB PO SCH (11:32)
[2023-12-11 14:48] VITALS: BP 173/69
[2023-12-11] MEDS: cloNIDine 0.1 MG TAB PO SCH (14:58)
[2023-12-11 15:22] VITALS: TEMP 97.5
[2023-12-11] MEDS ORDERED: Amlodipine 5 MG TAB PO SCH (21:00)
== END 2023-12-11 15:12 | disposition critical access hospital (66) | DRG 291 ==
LOC: ERS 15:24 → 2NO 20:18 → T4-A 12-09 17:40
PROVIDERS: ADMIT Internal Medicine; ATTEND Internal Medicine
PROC: 30233N1 Transfusion of Nonautologous Red Blood Cells into Peripheral Vein, Percutaneous Approach (ICD-10-PCS; principal; 2023-12-08)
DX: I13.0 Hypertensive heart and chronic kidney disease with heart failure and stage 1 through stage 4 chronic kidney disease, or unspecified chronic kidney disease (principal); I50.33 Acute on chronic diastolic (congestive) heart failure; E87.20 Acidosis, unspecified; N17.9 Acute kidney failure, unspecified; E78.5 Hyperlipidemia, unspecified; Z90.49 Acquired absence of other specified parts of digestive tract; Z90.710 Acquired absence of both cervix and uterus; F41.9 Anxiety disorder, unspecified; D64.9 Anemia, unspecified; S22.31XD Fracture of one rib, right side, subsequent encounter for fracture with routine healing; G30.9 Alzheimer's disease, unspecified; F02.80 Dementia in other diseases classified elsewhere, unspecified severity, without behavioral disturbance, psychotic disturbance, mood disturbance, and anxiety; D50.9 Iron deficiency anemia, unspecified; N18.30 Chronic kidney disease, stage 3 unspecified; E87.6 Hypokalemia; E11.22 Type 2 diabetes mellitus with diabetic chronic kidney disease
CPT/HCPCS: 36415; 36416; 36430; 71045; 71275; 80048; 81001; 82274; 82728; 83540; 83550; 83880; 84145; 85025; 85379; 86850; 86900; 86901; 93005; 93306; 93923; 93970; 96374; J1644; J1815; J1940; J2916; J7050; P9016; Q5105; Q9967

== ENCOUNTER 2024-01-07 15:54 | Outpatient (CLI) | payer OTHER | END 2024-01-07 15:55 | disposition home or self-care (01) | LOC: BICCT 15:54 | PROVIDERS: ATTEND Family Medicine | DX: R59.1 Generalized enlarged lymph nodes (principal); N28.9 Disorder of kidney and ureter, unspecified | CPT/HCPCS: 74176 ==

== ENCOUNTER 2024-01-09 12:13 | Emergency (ER) | payer MEDICARE, OTHER ==
[2024-01-09] MEDS ORDERED: Acetaminophen 500 MG TAB ONE (13:44)
[2024-01-09] MEDS ORDERED: traMADol HCl 50 MG TAB ONE (13:45)
[2024-01-09] MEDS ORDERED: fentaNYL 50 mcg/mL 1 mL Vial ONE (19:03)
== END 2024-01-09 12:14 | disposition home or self-care (01) ==
LOC: ERS 12:13
DX: S32.021A Stable burst fracture of second lumbar vertebra, initial encounter for closed fracture (principal); I10 Essential (primary) hypertension; E11.9 Type 2 diabetes mellitus without complications; F03.90 Unspecified dementia, unspecified severity, without behavioral disturbance, psychotic disturbance, mood disturbance, and anxiety; E78.5 Hyperlipidemia, unspecified; W18.39XA Other fall on same level, initial encounter; Y93.89 Activity, other specified; Y92.89 Other specified places as the place of occurrence of the external cause; Z79.82 Long term (current) use of aspirin; Z79.84 Long term (current) use of oral hypoglycemic drugs; Z79.899 Other long term (current) drug therapy
CPT/HCPCS: 72100; 72131; 72170; 72192; 96374; 99284; J3010

== ENCOUNTER 2024-03-25 15:05 | Inpatient (IN) | payer OTHER ==
[2024-03-25 16:08] LABS: #Basophils 0.03 10x3/uL (0.0-0.2); %Basophils 0.5 % (0.0-1.0); %Lymphocytes 15.3 % (21.0-51.0); %Monocytes 6.6 % (0.0-10.0); %Neutrophils 74.8 % (42.0-75.0); Hematocrit 24.2 % (36.0-47.0); Hemoglobin 8.3 g/dL (12.0-16.0); Mean Corpuscular HGB CONC 34.3 g/dL (32.0-36.0); Mean Corpuscular Hemoglobin 32.8 pg (27.0-31.0); Mean Corpuscular Volume 95.7 fL (78.0-98.0); Mean Platelet Volume 9.1 fL (7.4-10.4); Platelet Count 234 10x3/uL (130-400); RBC Distribution Width 15.5 % (11.5-14.5); Red Blood Cell (RBC) Count 2.53 mill/uL (4.20-5.40)
[2024-03-25 16:28] LABS: ALT (SGPT) 11 U/L (8-55); AST (SGOT) 18 U/L (5-34); Albumin 2.3 g/dL (3.4-4.8); Alkaline Phosphatase 120 U/L (40-110); Anion Gap 11 mmol/L (10-20); BUN (Urea Nitrogen) 22 mg/dL (9.8-20.1); Bilirubin, Total 0.3 mg/dL (0.2-1.2); Calc. Creatinine Clearance 0 mL/min (70-130); Calcium 8.1 mg/dL (7.8-10.44); Carbon Dioxide 20 mmol/L (23-31); Chloride 112 mmol/L (98-107); Estimated GFR 44; Globulin 3.4 g/dL (2.4-3.5); Glucose 101 mg/dL (83-110); Potassium 4.3 mmol/L (3.5-5.1); Protein, Total 5.7 g/dL (5.8-8.1); Sodium 139 mmol/L (136-145)
[2024-03-25 16:31] LABS: Troponin I 0.045 ng/mL (< 0.028)
[2024-03-25] MEDS ORDERED: Aspirin Chewable 81 MG TAB ONE (17:43)
[2024-03-25 20:33] LABS: Magnesium 1.6 mg/dL (1.6-2.6)
[2024-03-25 21:09] LABS: Troponin I 0.049 ng/mL (< 0.028)
[2024-03-25] MEDS: Donepezil HCl 10 MG TAB PO SCH (21:15)
[2024-03-25] MEDS: Gabapentin 300 MG CAP PO SCH (21:15)
[2024-03-25] MEDS ORDERED: Sodium Chloride 0.9% 1,000 ML IV SCH (22:15)
[2024-03-25 22:48] VITALS: BMI 24.9
[2024-03-26] MEDS: Morphine 2 MG/ML VIAL SLOW IVP PRN (00:17)
[2024-03-26] MEDS: Furosemide 20 MG (2 mL) VIAL SLOW IVP SCH (04:55)
[2024-03-26 05:28] LABS: Anion Gap 12 mmol/L (10-20); BUN (Urea Nitrogen) 22 mg/dL (9.8-20.1); Calc. Creatinine Clearance 42 mL/min (70-130); Calcium 7.9 mg/dL (7.8-10.44); Carbon Dioxide 20 mmol/L (23-31); Cardiac Risk 3.2 (Less than 4.5); Chloride 111 mmol/L (98-107); Cholesterol 123 mg/dl (< 200 Desired); Estimated GFR 59; Glucose 84 mg/dL (83-110); HDL Cholesterol 38 mg/dL (>60 Neg Risk); LDL Cholesterol, Calculated 66 mg/dL; Magnesium 1.7 mg/dL (1.6-2.6); Potassium 3.9 mmol/L (3.5-5.1); Sodium 139 mmol/L (136-145); Triglycerides 96 mg/dL (Less than 150)
[2024-03-26 05:46] LABS: Troponin I 0.049 ng/mL (< 0.028)
[2024-03-26 06:27] LABS: Bacteria/HPF 2+ HPF (None Seen); Bilirubin Negative (Negative); Blood, Urine Negative (Negative); CAUTI Indications for Culture Alt mental st,lethar; Clarity Clear (Clear); Glucose, Urine (Dipstick) 70 mg/dL (Negative); Ketone, Urine Negative (Negative); Leukocyte Negative Leu/uL (Negative); Nitrite Negative (Negative); Protein, Urine (Dipstick) 300 mg/dL (Neg-Trace); RBC/HPF 0-3 HPF (0-3); Specific Gravity, Urine 1.012 (1.002-1.036); Squamous Epithelial 0-3 HPF (0-3); Urobilinogen Normal mg/dL (Less than 2); WBC/HPF 0-3 HPF (0-3)
[2024-03-26 06:29] LABS: Urine Culture Reflex No No
[2024-03-26] MEDS: Amlodipine 5 MG TAB PO SCH (10:18)
[2024-03-26] MEDS: Saccharomyces boulardii 250 MG CAP PO SCH (10:18)
[2024-03-26] MEDS: Sertraline 100 MG TAB PO SCH (10:19)
[2024-03-26] MEDS: Pantoprazole DR 40 MG TAB PO SCH (10:19)
[2024-03-26] MEDS: Aspirin 81 mg Enteric Coated Tablet PO SCH (10:19)
[2024-03-26] MEDS: Multivitamin W/ Minerals 1 TAB PO SCH (10:19)
[2024-03-26] MEDS: Ferrous Sulfate 325 MG TAB PO SCH (10:19)
[2024-03-26] MEDS: Carvedilol 3.125 MG TAB PO SCH (10:19)
[2024-03-26] MEDS: Acetaminophen 500 MG TAB PO PRN (14:47)
[2024-03-26] MEDS ORDERED: traMADol HCl 50 MG TAB PO PRN (16:22)
[2024-03-26 18:13] VITALS: BMI 24.9
[2024-03-26] MEDS: Atorvastatin Calcium 10 MG TAB PO SCH (20:59)
[2024-03-26] MEDS: hydrALAZINE 25 MG TAB PO SCH (20:59)
[2024-03-27 04:23] LABS: #Basophils Less than 0.03 10x3/uL (0.0-0.2); %Basophils 0.4 % (0.0-1.0); %Eosinophils 3.5 % (0.0-10.0); %Lymphocytes 25.6 % (21.0-51.0); %Monocytes 7.3 % (0.0-10.0); %Neutrophils 62.8 % (42.0-75.0); Hematocrit 21.6 % (36.0-47.0); Hemoglobin 7.2 g/dL (12.0-16.0); Mean Corpuscular HGB CONC 33.3 g/dL (32.0-36.0); Mean Corpuscular Hemoglobin 30.9 pg (27.0-31.0); Mean Corpuscular Volume 92.7 fL (78.0-98.0); Mean Platelet Volume 10.4 fL (7.4-10.4); Platelet Count 214 10x3/uL (130-400); Red Blood Cell (RBC) Count 2.33 mill/uL (4.20-5.40)
[2024-03-27 04:40] LABS: Anion Gap 12 mmol/L (10-20); BUN (Urea Nitrogen) 26 mg/dL (9.8-20.1); Calc. Creatinine Clearance 31 mL/min (70-130); Calcium 7.8 mg/dL (7.8-10.44); Carbon Dioxide 22 mmol/L (23-31); Chloride 108 mmol/L (98-107); Estimated GFR 42; Glucose 96 mg/dL (83-110); Potassium 3.7 mmol/L (3.5-5.1); Sodium 138 mmol/L (136-145)
[2024-03-27] MEDS: Magnesium Oxide 400 MG TAB PO SCH (09:57)
[2024-03-27] MEDS: Calcium Carbonate 600 MG TAB PO SCH (09:57)
[2024-03-27] MEDS: Lisinopril 10 MG TAB PO SCH (09:58)
[2024-03-27] MEDS: Cholecalciferol 1,000 UNITS (25 MCG) TAB PO SCH (09:58)
[2024-03-27] MEDS: Furosemide 20 MG TAB PO SCH (09:58)
[2024-03-28 05:14] LABS: #Basophils 0.03 10x3/uL (0.0-0.2); %Basophils 0.7 % (0.0-1.0); %Eosinophils 3.6 % (0.0-10.0); %Lymphocytes 24.9 % (21.0-51.0); %Neutrophils 61.9 % (42.0-75.0); Hematocrit 20.5 % (36.0-47.0); Hemoglobin 6.9 g/dL (12.0-16.0); Mean Corpuscular HGB CONC 33.7 g/dL (32.0-36.0); Mean Corpuscular Hemoglobin 32.4 pg (27.0-31.0); Mean Corpuscular Volume 96.2 fL (78.0-98.0); Mean Platelet Volume 10.7 fL (7.4-10.4); Platelet Count 205 10x3/uL (130-400); RBC Distribution Width 15.2 % (11.5-14.5); Red Blood Cell (RBC) Count 2.13 mill/uL (4.20-5.40)
[2024-03-28 05:30] LABS: Anion Gap 13 mmol/L (10-20); BUN (Urea Nitrogen) 30 mg/dL (9.8-20.1); Calc. Creatinine Clearance 36 mL/min (70-130); Calcium 7.7 mg/dL (7.8-10.44); Carbon Dioxide 21 mmol/L (23-31); Chloride 112 mmol/L (98-107); Estimated GFR 49; Glucose 102 mg/dL (83-110); Potassium 3.7 mmol/L (3.5-5.1); Sodium 142 mmol/L (136-145)
[2024-03-28] MEDS: traMADol HCl 50 MG TAB PO PRN (23:15)
[2024-03-29 08:53] LABS: #Basophils 0.04 10x3/uL (0.0-0.2); %Basophils 0.7 % (0.0-1.0); %Eosinophils 3.4 % (0.0-10.0); %Lymphocytes 21.4 % (21.0-51.0); %Monocytes 5.7 % (0.0-10.0); %Neutrophils 67.9 % (42.0-75.0); Hematocrit 24.6 % (36.0-47.0); Hemoglobin 8.2 g/dL (12.0-16.0); Mean Corpuscular HGB CONC 33.3 g/dL (32.0-36.0); Mean Corpuscular Hemoglobin 31.9 pg (27.0-31.0); Mean Corpuscular Volume 95.7 fL (78.0-98.0); Mean Platelet Volume 9.8 fL (7.4-10.4); Platelet Count 218 10x3/uL (130-400); RBC Distribution Width 15.1 % (11.5-14.5); Red Blood Cell (RBC) Count 2.57 mill/uL (4.20-5.40)
[2024-03-29 09:19] LABS: Anion Gap 13 mmol/L (10-20); BUN (Urea Nitrogen) 24 mg/dL (9.8-20.1); Calc. Creatinine Clearance 38 mL/min (70-130); Calcium 8.2 mg/dL (7.8-10.44); Carbon Dioxide 20 mmol/L (23-31); Chloride 110 mmol/L (98-107); Estimated GFR 52; Glucose 114 mg/dL (83-110); Sodium 139 mmol/L (136-145)
[2024-03-30 04:27] LABS: #Basophils 0.03 10x3/uL (0.0-0.2); %Basophils 0.6 % (0.0-1.0); %Eosinophils 3.6 % (0.0-10.0); %Lymphocytes 24.1 % (21.0-51.0); %Monocytes 6.4 % (0.0-10.0); %Neutrophils 64.9 % (42.0-75.0); Hematocrit 21.6 % (36.0-47.0); Hemoglobin 7.1 g/dL (12.0-16.0); Mean Corpuscular HGB CONC 32.9 g/dL (32.0-36.0); Mean Corpuscular Hemoglobin 31.7 pg (27.0-31.0); Mean Corpuscular Volume 96.4 fL (78.0-98.0); Mean Platelet Volume 9.6 fL (7.4-10.4); Platelet Count 200 10x3/uL (130-400); RBC Distribution Width 14.8 % (11.5-14.5); Red Blood Cell (RBC) Count 2.24 mill/uL (4.20-5.40)
[2024-03-30 04:39] LABS: Anion Gap 14 mmol/L (10-20); BUN (Urea Nitrogen) 31 mg/dL (9.8-20.1); Calc. Creatinine Clearance 33 mL/min (70-130); Carbon Dioxide 22 mmol/L (23-31); Chloride 109 mmol/L (98-107); Estimated GFR 45; Glucose 91 mg/dL (83-110); Potassium 3.9 mmol/L (3.5-5.1); Sodium 141 mmol/L (136-145)
[2024-03-30] MEDS: Albumin 25% 25 GM (100 mL) BOT IVPB SCH (12:42)
[2024-03-30] MEDS: Sodium Ferric Gluconate 250 MG in Sodium Chloride 0.9% 250 ML 250 ML IVPB SCH (13:15)
[2024-03-30 13:58] LABS: Hematocrit 24.9 % (36.0-47.0); Hemoglobin 8.1 g/dL (12.0-16.0)
[2024-03-31 06:23] LABS: #Basophils 0.03 10x3/uL (0.0-0.2); %Basophils 0.6 % (0.0-1.0); %Lymphocytes 22.1 % (21.0-51.0); %Monocytes 7.6 % (0.0-10.0); %Neutrophils 66.3 % (42.0-75.0); Hematocrit 19.9 % (36.0-47.0); Hemoglobin 6.5 g/dL (12.0-16.0); Mean Corpuscular HGB CONC 32.7 g/dL (32.0-36.0); Mean Corpuscular Hemoglobin 31.7 pg (27.0-31.0); Mean Corpuscular Volume 97.1 fL (78.0-98.0); Mean Platelet Volume 9.1 fL (7.4-10.4); Platelet Count 152 10x3/uL (130-400); RBC Distribution Width 14.8 % (11.5-14.5); Red Blood Cell (RBC) Count 2.05 mill/uL (4.20-5.40)
[2024-03-31 06:39] LABS: Anion Gap 12 mmol/L (10-20); BUN (Urea Nitrogen) 32 mg/dL (9.8-20.1); Calc. Creatinine Clearance 37 mL/min (70-130); Calcium 8.2 mg/dL (7.8-10.44); Carbon Dioxide 22 mmol/L (23-31); Chloride 112 mmol/L (98-107); Estimated GFR 51; Glucose 97 mg/dL (83-110); Magnesium 2.1 mg/dL (1.6-2.6); Potassium 3.7 mmol/L (3.5-5.1); Sodium 142 mmol/L (136-145)
[2024-04-01 07:34] LABS: Anion Gap 14 mmol/L (10-20); BUN (Urea Nitrogen) 37 mg/dL (9.8-20.1); Calc. Creatinine Clearance 32 mL/min (70-130); Calcium 8.5 mg/dL (7.8-10.44); Carbon Dioxide 18 mmol/L (23-31); Chloride 113 mmol/L (98-107); Estimated GFR 43; Glucose 86 mg/dL (83-110); Potassium 4.6 mmol/L (3.5-5.1); Sodium 140 mmol/L (136-145)
[2024-04-01 08:25] LABS: #Basophils 0.04 10x3/uL (0.0-0.2); %Basophils 0.7 % (0.0-1.0); %Eosinophils 3.4 % (0.0-10.0); %Lymphocytes 20.8 % (21.0-51.0); %Neutrophils 67.6 % (42.0-75.0); Hemoglobin 10.8 g/dL (12.0-16.0); Mean Corpuscular HGB CONC 33.8 g/dL (32.0-36.0); Mean Corpuscular Hemoglobin 31.4 pg (27.0-31.0); Platelet Count 174 10x3/uL (130-400); Red Blood Cell (RBC) Count 3.44 mill/uL (4.20-5.40)
[2024-04-01 11:27] LABS: Glucose 132 mg/dL (83-110)
[2024-04-01 16:34] LABS: Glucose 109 mg/dL (83-110)
[2024-04-02 04:46] LABS: #Basophils 0.03 10x3/uL (0.0-0.2); %Basophils 0.6 % (0.0-1.0); %Eosinophils 3.2 % (0.0-10.0); %Lymphocytes 22.1 % (21.0-51.0); %Monocytes 7.7 % (0.0-10.0); %Neutrophils 65.8 % (42.0-75.0); Hematocrit 29.2 % (36.0-47.0); Hemoglobin 9.8 g/dL (12.0-16.0); Mean Corpuscular HGB CONC 33.6 g/dL (32.0-36.0); Mean Corpuscular Volume 95.4 fL (78.0-98.0); Mean Platelet Volume 10.2 fL (7.4-10.4); Platelet Count 182 10x3/uL (130-400); RBC Distribution Width 15.9 % (11.5-14.5); Red Blood Cell (RBC) Count 3.06 mill/uL (4.20-5.40)
[2024-04-02 05:07] LABS: Anion Gap 11 mmol/L (10-20); BUN (Urea Nitrogen) 40 mg/dL (9.8-20.1); Calc. Creatinine Clearance 28 mL/min (70-130); Calcium 8.3 mg/dL (7.8-10.44); Carbon Dioxide 21 mmol/L (23-31); Chloride 113 mmol/L (98-107); Estimated GFR 37; Glucose 97 mg/dL (83-110); Potassium 4.1 mmol/L (3.5-5.1); Sodium 141 mmol/L (136-145)
[2024-04-03 06:10] LABS: #Basophils 0.03 10x3/uL (0.0-0.2); %Basophils 0.6 % (0.0-1.0); %Eosinophils 3.7 % (0.0-10.0); %Lymphocytes 22.1 % (21.0-51.0); %Monocytes 7.5 % (0.0-10.0); %Neutrophils 65.5 % (42.0-75.0); Hematocrit 29.4 % (36.0-47.0); Hemoglobin 9.9 g/dL (12.0-16.0); Mean Corpuscular HGB CONC 33.7 g/dL (32.0-36.0); Mean Corpuscular Hemoglobin 31.6 pg (27.0-31.0); Mean Corpuscular Volume 93.9 fL (78.0-98.0); Mean Platelet Volume 10.8 fL (7.4-10.4); Platelet Count 174 10x3/uL (130-400); RBC Distribution Width 15.1 % (11.5-14.5); Red Blood Cell (RBC) Count 3.13 mill/uL (4.20-5.40)
[2024-04-03 06:55] LABS: Anion Gap 12 mmol/L (10-20); BUN (Urea Nitrogen) 39 mg/dL (9.8-20.1); Calc. Creatinine Clearance 32 mL/min (70-130); Calcium 8.4 mg/dL (7.8-10.44); Carbon Dioxide 21 mmol/L (23-31); Chloride 111 mmol/L (98-107); Estimated GFR 43; Glucose 84 mg/dL (83-110); Potassium 3.7 mmol/L (3.5-5.1); Sodium 140 mmol/L (136-145)
[2024-04-04 05:17] LABS: #Basophils 0.03 10x3/uL (0.0-0.2); %Basophils 0.6 % (0.0-1.0); %Eosinophils 4.2 % (0.0-10.0); %Lymphocytes 26.3 % (21.0-51.0); %Monocytes 7.6 % (0.0-10.0); %Neutrophils 60.9 % (42.0-75.0); Hematocrit 28.8 % (36.0-47.0); Hemoglobin 9.7 g/dL (12.0-16.0); Mean Corpuscular HGB CONC 33.7 g/dL (32.0-36.0); Mean Platelet Volume 10.2 fL (7.4-10.4); Platelet Count 176 10x3/uL (130-400); RBC Distribution Width 14.9 % (11.5-14.5); Red Blood Cell (RBC) Count 3.03 mill/uL (4.20-5.40)
[2024-04-04 05:36] LABS: Anion Gap 11 mmol/L (10-20); BUN (Urea Nitrogen) 41 mg/dL (9.8-20.1); Calc. Creatinine Clearance 33 mL/min (70-130); Calcium 8.6 mg/dL (7.8-10.44); Carbon Dioxide 22 mmol/L (23-31); Chloride 111 mmol/L (98-107); Estimated GFR 45; Glucose 96 mg/dL (83-110); Potassium 3.8 mmol/L (3.5-5.1); Sodium 140 mmol/L (136-145)
[2024-04-05 06:51] LABS: #Basophils Less than 0.03 10x3/uL (0.0-0.2); %Basophils 0.4 % (0.0-1.0); %Eosinophils 3.8 % (0.0-10.0); %Lymphocytes 25.9 % (21.0-51.0); %Monocytes 7.6 % (0.0-10.0); %Neutrophils 62.1 % (42.0-75.0); Hematocrit 29.3 % (36.0-47.0); Hemoglobin 10.1 g/dL (12.0-16.0); Mean Corpuscular HGB CONC 34.5 g/dL (32.0-36.0); Mean Corpuscular Hemoglobin 32.1 pg (27.0-31.0); Mean Platelet Volume 9.9 fL (7.4-10.4); Platelet Count 171 10x3/uL (130-400); RBC Distribution Width 14.7 % (11.5-14.5); Red Blood Cell (RBC) Count 3.15 mill/uL (4.20-5.40)
[2024-04-05 07:20] LABS: Anion Gap 13 mmol/L (10-20); BUN (Urea Nitrogen) 45 mg/dL (9.8-20.1); Calc. Creatinine Clearance 26 mL/min (70-130); Calcium 8.4 mg/dL (7.8-10.44); Carbon Dioxide 20 mmol/L (23-31); Chloride 111 mmol/L (98-107); Estimated GFR 34; Glucose 92 mg/dL (83-110); Potassium 3.9 mmol/L (3.5-5.1); Sodium 140 mmol/L (136-145)
[2024-04-05 16:39] VITALS: BP 165/70; TEMP 98
== END 2024-04-05 17:09 | disposition swing bed (61) | DRG 551 ==
LOC: ERS 15:05 → 2NO 18:33 → OBSVTOIN 03-27 09:51 → SURG A 03-29 00:09
PROVIDERS: ADMIT Internal Medicine; ATTEND Internal Medicine
PROC: 30233J1 Transfusion of Nonautologous Serum Albumin into Peripheral Vein, Percutaneous Approach (ICD-10-PCS; principal; 2024-03-30)
PROC: 30233N1 Transfusion of Nonautologous Red Blood Cells into Peripheral Vein, Percutaneous Approach (ICD-10-PCS; 2024-03-31)
DX: M50.323 Other cervical disc degeneration at C6-C7 level (principal); I50.33 Acute on chronic diastolic (congestive) heart failure; N17.9 Acute kidney failure, unspecified; I24.89 Other forms of acute ischemic heart disease; I13.0 Hypertensive heart and chronic kidney disease with heart failure and stage 1 through stage 4 chronic kidney disease, or unspecified chronic kidney disease; M50.223 Other cervical disc displacement at C6-C7 level; S12.601D Unspecified nondisplaced fracture of seventh cervical vertebra, subsequent encounter for fracture with routine healing; G30.9 Alzheimer's disease, unspecified; F02.80 Dementia in other diseases classified elsewhere, unspecified severity, without behavioral disturbance, psychotic disturbance, mood disturbance, and anxiety; D64.9 Anemia, unspecified; K02.9 Dental caries, unspecified; M48.07 Spinal stenosis, lumbosacral region; N18.30 Chronic kidney disease, stage 3 unspecified; E78.5 Hyperlipidemia, unspecified; E11.22 Type 2 diabetes mellitus with diabetic chronic kidney disease; Z79.82 Long term (current) use of aspirin; Z79.899 Other long term (current) drug therapy; Z90.710 Acquired absence of both cervix and uterus; W18.30XD Fall on same level, unspecified, subsequent encounter
CPT/HCPCS: 36415; 36416; 36430; 70450; 70551; 71045; 72125; 72141; 72148; 80048; 80053; 80061; 81001; 82274; 83605; 83735; 83880; 84484; 85025; 86850; 86900; 86901; 93005; 96374; 96375; 96376; G0378; J1940; J2272; J2916; J7050; P9016; P9047

== ENCOUNTER 2024-04-21 15:17 | Inpatient (IN) | payer OTHER ==
[2024-04-21] MEDS ORDERED: Ondansetron PF 4 MG/2 ML Vial ONE ×2 (16:10→17:55)
[2024-04-21 16:27] LABS: #Basophils 0.03 10x3/uL (0.0-0.2); #Eosinophils Less than 0.03 10x3/uL (0.0-0.7); %Basophils 0.5 % (0.0-1.0); %Eosinophils 0.2 % (0.0-10.0); %Monocytes 2.8 % (0.0-10.0); %Neutrophils 85.2 % (42.0-75.0); Hematocrit 32.5 % (36.0-47.0); Hemoglobin 10.7 g/dL (12.0-16.0); Mean Corpuscular HGB CONC 32.9 g/dL (32.0-36.0); Mean Corpuscular Hemoglobin 31.8 pg (27.0-31.0); Mean Corpuscular Volume 96.7 fL (78.0-98.0); Mean Platelet Volume 9.8 fL (7.4-10.4); Platelet Count 170 10x3/uL (130-400); RBC Distribution Width 13.6 % (11.5-14.5); Red Blood Cell (RBC) Count 3.36 mill/uL (4.20-5.40)
[2024-04-21 16:45] LABS: ALT (SGPT) 15 U/L (8-55); AST (SGOT) 20 U/L (5-34); Albumin 3.1 g/dL (3.4-4.8); Alkaline Phosphatase 98 U/L (40-110); Anion Gap 12 mmol/L (10-20); BUN (Urea Nitrogen) 37 mg/dL (9.8-20.1); Bilirubin, Total 0.4 mg/dL (0.2-1.2); Calc. Creatinine Clearance 0 mL/min (70-130); Carbon Dioxide 21 mmol/L (23-31); Chloride 112 mmol/L (98-107); Estimated GFR 40; Globulin 3.7 g/dL (2.4-3.5); Glucose 139 mg/dL (83-110); Lipase 27 U/L (8-78); Potassium 4.3 mmol/L (3.5-5.1); Protein, Total 6.8 g/dL (5.8-8.1); Sodium 141 mmol/L (136-145)
[2024-04-21 16:49] LABS: Troponin I 0.081 ng/mL (< 0.028)
[2024-04-21 17:35] LABS: Bilirubin Negative (Negative); Blood, Urine Negative (Negative); CAUTI Indications for Culture Dysuria,urgency,freq; Clarity Clear (Clear); Glucose, Urine (Dipstick) Normal (Negative); Ketone, Urine Negative (Negative); Leukocyte Negative Leu/uL (Negative); Nitrite Negative (Negative); Protein, Urine (Dipstick) 600 mg/dL (Neg-Trace); RBC/HPF 0-3 HPF (0-3); Specific Gravity, Urine 1.011 (1.002-1.036); Squamous Epithelial 0-3 HPF (0-3); Urobilinogen Normal mg/dL (Less than 2); WBC/HPF 0-3 HPF (0-3)
[2024-04-21 17:37] LABS: Bacteria/HPF 1+ HPF (None Seen)
[2024-04-21 17:38] LABS: Urine Culture Reflex No No
[2024-04-21] MEDS ORDERED: hydrALAZINE 20 MG/ML VIAL ONE (17:44)
[2024-04-21] MEDS ORDERED: Aspirin Chewable 81 MG TAB ONE (17:44)
[2024-04-21] MEDS ORDERED: Morphine 4 MG/ML VIAL ONE (17:49)
[2024-04-21] MEDS ORDERED: Enoxaparin 80 MG (0.8 mL) SYRINGE SC SCH (18:00)
[2024-04-21 19:40] LABS: Troponin I 0.074 ng/mL (< 0.028)
[2024-04-21] MEDS ORDERED: Acetaminophen 325 MG TAB PO PRN (20:31)
[2024-04-21] MEDS ORDERED: Ondansetron ODT 4 MG TAB PO PRN (20:31)
[2024-04-21] MEDS ORDERED: Dextrose 50% Abboject 50 ML SYRINGE SLOW IVP PRN (20:31)
[2024-04-21] MEDS ORDERED: Insulin Lispro 100 UNIT/ML 10 ML VIAL SC PRN ×2 (20:31)
[2024-04-21] MEDS ORDERED: Ondansetron PF 4 MG/2 ML Vial IVP PRN (20:31)
[2024-04-21] MEDS ORDERED: Glucagon 1 MG/ML KIT IM PRN (20:31)
[2024-04-21] MEDS ORDERED: Dextrose 5% in Water 1,000 ML IV PRN (20:31)
[2024-04-21] MEDS: Morphine 4 MG/ML VIAL SLOW IVP PRN (22:11)
[2024-04-21] MEDS: Sodium Chloride 0.9% 1,000 ML IV SCH (22:11)
[2024-04-21 22:50] LABS: Troponin I 0.057 ng/mL (< 0.028)
[2024-04-21 22:51] VITALS: BMI 22.1
[2024-04-22] MEDS: Pantoprazole 40 MG VIAL IVP SCH (04:47)
[2024-04-22 05:09] LABS: Anion Gap 10 mmol/L (10-20); BUN (Urea Nitrogen) 30 mg/dL (9.8-20.1); Calc. Creatinine Clearance 33 mL/min (70-130); Calcium 8.2 mg/dL (7.8-10.44); Carbon Dioxide 20 mmol/L (23-31); Chloride 115 mmol/L (98-107); Estimated GFR 50; Glucose 76 mg/dL (83-110); Potassium 3.6 mmol/L (3.5-5.1); Sodium 141 mmol/L (136-145)
[2024-04-22 05:21] LABS: #Basophils 0.03 10x3/uL (0.0-0.2); %Basophils 0.6 % (0.0-1.0); %Eosinophils 1.5 % (0.0-10.0); %Lymphocytes 26.4 % (21.0-51.0); %Monocytes 9.1 % (0.0-10.0); Hematocrit 27.3 % (36.0-47.0); Mean Corpuscular Hemoglobin 31.7 pg (27.0-31.0); Mean Corpuscular Volume 96.1 fL (78.0-98.0); Mean Platelet Volume 11.6 fL (7.4-10.4); Platelet Count 126 10x3/uL (130-400); RBC Distribution Width 13.7 % (11.5-14.5); Red Blood Cell (RBC) Count 2.84 mill/uL (4.20-5.40)
[2024-04-22] MEDS ORDERED: traMADol HCl 50 MG TAB PO PRN (11:46)
[2024-04-22] MEDS ORDERED: Methocarbamol 500 MG TAB PO PRN (11:46)
[2024-04-22] MEDS: hydrALAZINE 25 MG TAB PO SCH (15:31)
[2024-04-22] MEDS: Carvedilol 3.125 MG TAB PO SCH (17:49)
[2024-04-22] MEDS: Sodium Chloride 0.9% 1,000 ML IV SCH (19:00)
[2024-04-22] MEDS: Gabapentin 300 MG CAP PO SCH (20:17)
[2024-04-22] MEDS: Atorvastatin Calcium 10 MG TAB PO SCH (20:17)
[2024-04-22] MEDS: Donepezil HCl 10 MG TAB PO SCH (20:17)
[2024-04-22] MEDS: Amlodipine 5 MG TAB PO SCH (20:17)
[2024-04-23] MEDS: Ascorbic Acid 500 mg Chewable Tablet PO SCH (09:03)
[2024-04-23] MEDS: Calcium Carbonate 600 MG TAB PO SCH (09:03)
[2024-04-23] MEDS: Sertraline 100 MG TAB PO SCH (09:03)
[2024-04-23] MEDS: Aspirin 81 mg Enteric Coated Tablet PO SCH (09:03)
[2024-04-23] MEDS: Saccharomyces boulardii 250 MG CAP PO SCH (09:03)
[2024-04-23] MEDS: Cholecalciferol 1,000 UNITS (25 MCG) TAB PO SCH (09:03)
[2024-04-23] MEDS: Pantoprazole 40 MG VIAL IVP SCH (09:03)
[2024-04-23] MEDS: Magnesium Oxide 400 MG TAB PO SCH (09:09)
[2024-04-23 11:19] VITALS: BP 151/70; TEMP 97.9
== END 2024-04-23 16:02 | disposition home or self-care (01) | DRG 391 ==
LOC: ERS 15:17 → 2NO 18:24 → OBSVTOIN 04-22 18:22
PROVIDERS: ADMIT Student in an Organized Health Care Education/Training Program; ATTEND Internal Medicine
DX: R11.2 Nausea with vomiting, unspecified (principal); I21.A1 Myocardial infarction type 2; M48.56XA Collapsed vertebra, not elsewhere classified, lumbar region, initial encounter for fracture; E78.5 Hyperlipidemia, unspecified; F03.90 Unspecified dementia, unspecified severity, without behavioral disturbance, psychotic disturbance, mood disturbance, and anxiety; E11.22 Type 2 diabetes mellitus with diabetic chronic kidney disease; Z66 Do not resuscitate; I12.9 Hypertensive chronic kidney disease with stage 1 through stage 4 chronic kidney disease, or unspecified chronic kidney disease; Z90.49 Acquired absence of other specified parts of digestive tract; Z90.710 Acquired absence of both cervix and uterus; Z79.899 Other long term (current) drug therapy; Z79.82 Long term (current) use of aspirin; Z79.84 Long term (current) use of oral hypoglycemic drugs; N18.30 Chronic kidney disease, stage 3 unspecified
CPT/HCPCS: 36415; 36416; 80048; 80053; 81001; 83605; 83690; 83735; 84443; 84484; 85025; 93005; 96361; 96374; 96375; 96376; G0378; J0360; J2272; J2405; J2470; J7030

== ENCOUNTER 2025-02-22 20:01 | Emergency (ER) | payer MEDICARE, OTHER ==
[2025-02-22 21:09] LABS: #Basophils Less than 0.03 10x3/uL (0.0-0.2); #Eosinophils 0.10 10x3/uL (0.0-0.7); #Monocytes 0.34 10x3/uL (0.11-0.59); #Neutrophils 5.21 10x3/uL (1.40-6.50); %Basophils 0.3 % (0.0-1.0); %Eosinophils 1.6 % (0.0-10.0); %Lymphocytes 9.4 % (21.0-51.0); %Monocytes 5.4 % (0.0-10.0); %Neutrophils 83.0 % (42.0-75.0); Hematocrit 33.0 % (36.0-47.0); Hemoglobin 10.2 g/dL (12.0-16.0); Mean Corpuscular Hemoglobin 33.1 pg (27.0-31.0); Mean Corpuscular Volume 107.1 fL (78.0-98.0); Platelet Count 168 10x3/uL (130-400); Red Blood Cell (RBC) Count 3.08 mill/uL (4.20-5.40); White Blood Cell (WBC) Count 6.28 10x3/uL (4.8-10.8)
[2025-02-22 21:12] LABS: CAUTI Indications for Culture Pelvic or flank pain; Glucose, Urine (Dipstick) 30 mg/dL (Negative); Leukocyte 25 Leu/uL (Negative); Protein, Urine (Dipstick) 200 mg/dL (Neg-Trace); RBC/HPF 0-3 HPF (0-3); Specific Gravity, Urine 1.015 (1.002-1.036)
[2025-02-22 21:25] LABS: ALT (SGPT) 22 U/L (Less than 34); AST (SGOT) 52 U/L (11-34); Albumin 3.1 g/dL (3.1-4.5); Alkaline Phosphatase 189 U/L (40-110); Anion Gap 15 mmol/L (10-20); BUN (Urea Nitrogen) 35 mg/dL (9.8-20.1); Bilirubin, Total 0.3 mg/dL (0.3-1.2); Calc. Creatinine Clearance 0 mL/min (70-130); Calcium 8.3 mg/dL (7.8-10.44); Carbon Dioxide 16 mmol/L (23-31); Chloride 116 mmol/L (98-107); Globulin 3.9 g/dL (2.4-3.5); Glucose 109 mg/dL (83-110); Lipase 38 U/L (8-78); Potassium 4.3 mmol/L (3.5-5.1); Sodium 143 mmol/L (136-145)
[2025-02-22 21:34] LABS: Bacteria/HPF 1+ HPF (None Seen); Urine Culture Reflex No No
[2025-02-22] MEDS ORDERED: Acetaminophen 500 MG TAB ONE (22:09)
[2025-02-22] MEDS ORDERED: Dicyclomine 20 MG TAB ONE (22:10)
[2025-02-22] MEDS ORDERED: Famotidine 20 MG TAB ONE (22:10)
== END 2025-02-22 23:50 | disposition home or self-care (01) ==
LOC: ERS 20:01
DX: R10.30 Lower abdominal pain, unspecified (principal); D64.9 Anemia, unspecified; I12.9 Hypertensive chronic kidney disease with stage 1 through stage 4 chronic kidney disease, or unspecified chronic kidney disease; N18.9 Chronic kidney disease, unspecified; E11.22 Type 2 diabetes mellitus with diabetic chronic kidney disease; Z55.6 Problems related to health literacy
CPT/HCPCS: 36415; 71045; 74176; 80053; 81001; 83690; 84484; 85025; 93005

== ENCOUNTER 2025-04-11 09:20 | Outpatient (CLI) | payer OTHER | END 2025-04-11 09:21 | disposition home or self-care (01) | LOC: MRI 09:20 | PROVIDERS: ATTEND Physician Assistant Medical | DX: K21.9 Gastro-esophageal reflux disease without esophagitis (principal); R63.4 Abnormal weight loss; R10.9 Unspecified abdominal pain; K52.9 Noninfective gastroenteritis and colitis, unspecified; K80.50 Calculus of bile duct without cholangitis or cholecystitis without obstruction; N28.1 Cyst of kidney, acquired; K76.89 Other specified diseases of liver; K57.30 Diverticulosis of large intestine without perforation or abscess without bleeding; K83.8 Other specified diseases of biliary tract | CPT/HCPCS: 36000; 74183 ==

== ENCOUNTER 2025-04-14 08:03 | Day surgery (SDC) | payer OTHER ==
[2025-04-13 09:12] VITALS: BMI 22.9
[2025-04-14] MEDS ORDERED: Lidocaine 1% PF 5 ML VIAL ONE (09:34)
[2025-04-14] MEDS ORDERED: Rocuronium Bromide 10 MG/ML (10ML VIAL) ONE (09:34)
[2025-04-14] MEDS ORDERED: PROPOFOL 20 ML ONE (09:34)
[2025-04-14] MEDS ORDERED: Ondansetron PF 4 MG/2 ML Vial ONE (10:18)
[2025-04-14] MEDS ORDERED: SUGAMMADEX SODIUM 200 MG/2 ML VIAL ONE (10:32)
[2025-04-14] MEDS ORDERED: hydrALAZINE 20 MG/ML VIAL ONE (10:46)
== END 2025-04-14 12:58 | disposition home or self-care (01) ==
LOC: SDC 08:03
PROVIDERS: ATTEND Internal Medicine
PROC: 0FC78ZZ Extirpation of Matter from Common Hepatic Duct, Via Natural or Artificial Opening Endoscopic (ICD-10-PCS; principal; 2025-04-14)
DX: K80.50 Calculus of bile duct without cholangitis or cholecystitis without obstruction (principal); D53.9 Nutritional anemia, unspecified; K21.9 Gastro-esophageal reflux disease without esophagitis; E78.5 Hyperlipidemia, unspecified; K52.9 Noninfective gastroenteritis and colitis, unspecified; R79.89 Other specified abnormal findings of blood chemistry; I13.0 Hypertensive heart and chronic kidney disease with heart failure and stage 1 through stage 4 chronic kidney disease, or unspecified chronic kidney disease; E11.22 Type 2 diabetes mellitus with diabetic chronic kidney disease; N18.9 Chronic kidney disease, unspecified; I50.9 Heart failure, unspecified; Z79.899 Other long term (current) drug therapy; Z91.013 Allergy to seafood
CPT/HCPCS: 43262; 43264; 74330; C1725; J0360; J1100; J2704; Q9967